=== PATIENT | female | born 1990 | race American Indian/Alaskan Native ===

== ENCOUNTER 2020-11-19 17:01 | Emergency (ER) | payer MEDICAID ==
[2020-11-19 18:34] VITALS: BP 117/79
== END 2020-11-19 19:23 | disposition left against medical advice (07) ==
LOC: ED 17:01
DX: O20.9 Hemorrhage in early pregnancy, unspecified (principal); Z3A.01 Less than 8 weeks gestation of pregnancy; Z53.21 Procedure and treatment not carried out due to patient leaving prior to being seen by health care provider